=== PATIENT | female | born 1935 | race Caucasian/White ===

== ENCOUNTER 2023-06-19 10:26 | Outpatient (AMB) | payer MEDICARE, SELFPAY ==
[2023-06-19 11:04] VITALS: BP 130/80; PULSE 69; O2SAT 100; BMI 24.4
--- NOTE | 2023-06-19 11:04 | HO.NEPHOV_ITS ---
HPI HPI Comments History of Present Illness Details I had the privilege of seeing Rafaela in follow-up of her chronic kidney disease. She has been going through a lot of personal life stressors due to her 's ill health. She was put on NADIA-inhibitor in the past which has led to hyperkalemia and was discontinued. Her blood pressure is typically well controlled at home. She regularly takes potassium lowering medications. She does not have any chest pain, shortness of breath, proximal nocturnal dyspnea, orthopnea, pedal edema, nephrolithiasis, hematuria or orthostatic symptoms. She does not take nonsteroidal anti-inflammatories and maintain good hydration. [facility] Medical History (Updated 06/24/23 @ 13:29 by Michele Seo MD) Secondary hyperparathyroidism Hyperkalemia CKD (chronic kidney disease) Hypertension Surgical History (Updated 06/19/23 @ 11:08 by Anne Womack MA) History of hip surgery Hx of hernia repair History of hysterectomy Family History (Updated 06/19/23 @ 11:09 by Anne Womack MA) Father Heart disease Mother Hypertension Social History (Updated 06/19/23 @ 11:08 by Anne Womack MA) Alcohol intake: current Patient Tobacco Use Status: Never used Tobacco Vital Signs 06/19/23 11:04 Height 5 ft 2 in Weight 133 lb 4 oz BMI 24.4 BP 130/80 Blood Pressure Location Rt brachial Position Sitting Pulse 69 Pulse Source Pulse Oximeter Pulse Oximetry (%) 100 Oxygen Delivery Method Room Air Physical Exam Vital Signs: Last Vital Signs Pulse 69 06/19/23 11:04 BP 130/80 06/19/23 11:04 Pulse Ox 100 06/19/23 11:04 Oxygen Delivery Method Room Air 06/19/23 11:04 BMI result Body Mass Index 24.4 Const General: comfortable and no acute distress Orientation/consciousness: patient oriented x3 HEENT Head: Yes normocephalic Mouth: Normal oral and palatal mucosa present Eyes EOM: EOMs intact bilaterally Neck Neck: Yes supple Resp Auscultation: clear to auscultation bilaterally Cardio Jugular venous distension: no JVD Rate: regular rate GI Palpation (GI): Soft to palpation Auscultation: normal bowel sounds General: Yes no CVA tenderness Back/Spine/Pelvis Back: no CVA tenderness Skin General skin exam: no rashes or lesions noted Neuro General: patient oriented x3 and moves all extremities Extrem General: Yes no pedal edema Assessment & Plan Assessment & Plan (1) Chronic kidney disease, stage 4 (severe): Code(s): N18.4 - Chronic kidney disease, stage 4 (severe) (2) Hyperkalemia: Code(s): E87.5 - Hyperkalemia (3) Secondary hyperparathyroidism (of renal origin): Code(s): N25.81 - Secondary hyperparathyroidism of renal origin Plan Rafaela has stage 4 chronic kidney disease. Her renal functions had been stable. She has no history of blood or protein in the urine. Her blood pressure is currently well controlled. She had been on NADIA inhibitor in the past which was discontinued due to hyperkalemia. CT abdomen in the past had shown bilateral atrophic kidneys. The nature of her renal insult is unknown. She had undergone serum immunofixation and urine studies along with the Doppler of renal arteries, which were unremarkable. She is on potassium lowering medications. She had issues with white vitamin-D before. She avoids nonsteroidal anti-inflammatories and maintain good hydration. I did not make any medication changes today. Follow-up blood work ordered. Answered all questions. Follow-up appointment given. Orders: Orders Creatinine 06/19/23 N18.4 - Chronic kidney disease, stage 4 (severe) Blood Urea Nitrogen 06/19/23 N18.4 - Chronic kidney disease, stage 4 (severe) Parathyroid Hormone Intact 06/19/23 N18.4 - Chronic kidney disease, stage 4 (severe) Complete Blood Count Auto Diff 06/19/23 N18.4 - Chronic kidney disease, stage 4 (severe) Electrolytes 06/19/23 N18.4 - Chronic kidney disease, stage 4 (severe) Medications: New sodium polystyrene sulf-sorbtl 15-20 gram/60 mL (SPS (with sorbitol)) 120 mL PO QWEEK 473 mL 5RF Coding Level of Care Code Est Pt Level 4 (39247) Diagnoses Chronic kidney disease, stage 4 (severe) N18.4 Hyperkalemia E87.5 Secondary hyperparathyroidism (of renal origin) N25.81 Results Reviewed Nephrology Results: No Data to Display
== END 2023-06-19 11:40 | disposition home or self-care (01) ==
LOC: HO.HKAS 10:26
PROVIDERS: PCP Internal Medicine; Visit Provider Internal Medicine Nephrology
DX: N18.4 Chronic kidney disease, stage 4 (severe) (principal); E87.5 Hyperkalemia; N25.81 Secondary hyperparathyroidism of renal origin
CPT/HCPCS: 99214

== ENCOUNTER → 2023-06-19 10:26 | Outpatient (BNVA) | payer MEDICARE, SELFPAY | PROVIDERS: PCP Internal Medicine; Visit Provider Internal Medicine Nephrology | DX: N18.4 Chronic kidney disease, stage 4 (severe) (principal) | CPT/HCPCS: 99212 ==

== ENCOUNTER 2023-10-07 10:13 | Outpatient (AMB) | payer MEDICARE, SELFPAY ==
[2023-10-07 10:31] VITALS: BP 126/82; PULSE 72; O2SAT 99; BMI 23.6
--- NOTE | 2023-10-07 10:31 | HO.NEPHOV ---
Vital Signs 10/07/23 10:31 Height 5 ft 2 in Weight 129 lb BMI 23.6 BP 126/82 Blood Pressure Location Lt brachial Position Sitting Pulse 72 Pulse Source Pulse Oximeter Pulse Oximetry (%) 99 Oxygen Delivery Method Room Air Intake Visit Reasons: 4 Month F/U/ Conf Repertoire Manager Required: No Accompanied by: Self / Same As Patient Allergies lisinopril Allergy (Verified 10/07/23 10:33) Unknown nitrofurantoin Allergy (Verified 10/07/23 10:33) Gastrointestinal Upset Penicillins Allergy (Verified 10/07/23 10:33) Unknown prednisone Allergy (Verified 10/07/23 10:33) Unknown Progestins Allergy (Verified 10/07/23 10:33) Unknown HPI Comments Details: I had the privilege of seeing Rafaela in follow-up of her chronic kidney disease. She has been going through a lot of personal life stressors due to her 's ill health. She was put on NADIA-inhibitor in the past which has led to hyperkalemia and was discontinued. She has not been taking Kionex for a few weeks and her latest K was 6.0. Her blood pressure is typically well controlled at home. She does not have any chest pain, shortness of breath, proximal nocturnal dyspnea, orthopnea, pedal edema, nephrolithiasis, hematuria or orthostatic symptoms. She does not take nonsteroidal anti-inflammatories and maintain good hydration. [facility] Medical History (Updated 06/24/23 @ 13:29 by Michele Seo MD) Secondary hyperparathyroidism Hyperkalemia CKD (chronic kidney disease) Hypertension Surgical History History of hip surgery Hx of hernia repair History of hysterectomy Family History Father Heart disease Mother Hypertension Social History Alcohol intake: current Patient Tobacco Use Status: Never used Tobacco Physical Exam Vital Signs: Last Vital Signs Pulse 72 10/07/23 10:31 BP 126/82 10/07/23 10:31 Pulse Ox 99 10/07/23 10:31 Oxygen Delivery Method Room Air 10/07/23 10:31 BMI result Body Mass Index 23.6 Const General: comfortable and no acute distress Orientation/consciousness: patient oriented x3 HEENT Head: Yes normocephalic Mouth: Normal oral and palatal mucosa present Eyes EOM: EOMs intact bilaterally Neck Neck: Yes supple Resp Auscultation: clear to auscultation bilaterally Cardio Jugular venous distension: no JVD Rate: regular rate GI Palpation (GI): Soft to palpation Auscultation: normal bowel sounds General: Yes no CVA tenderness Back/Spine/Pelvis Back: no CVA tenderness Skin General skin exam: no rashes or lesions noted Neuro General: patient oriented x3 and moves all extremities Extrem General: Yes no pedal edema Results Reviewed Nephrology Results: No Data to Display Assessment & Plan Assessment & Plan (1) Chronic kidney disease, stage 4 (severe): Code(s): N18.4 - Chronic kidney disease, stage 4 (severe) Category: Medical (2) Secondary hyperparathyroidism (of renal origin): Code(s): N25.81 - Secondary hyperparathyroidism of renal origin Category: Medical Plan Rafaela has stage 4 chronic kidney disease. Her renal functions had been stable. She has no history of blood or protein in the urine. Her blood pressure is currently well controlled. She had been on NADIA inhibitor in the past which was discontinued due to hyperkalemia. CT abdomen in the past had shown bilateral atrophic kidneys. The nature of her renal insult is unknown. She had undergone serum immunofixation and urine studies along with the Doppler of renal arteries, which were unremarkable. She has been on potassium lowering medications. I encouraged the compliance. She had issues with white vitamin-D before. She avoids nonsteroidal anti-inflammatories and maintain good hydration. I did not make any other medication changes today. Follow-up blood work ordered. Answered all questions. Follow-up appointment given. Orders: Orders Electrolytes Today N18.4 - Chronic kidney disease, stage 4 (severe), N25.81 - Secondary hyperparathyroidism of renal origin Blood Urea Nitrogen Today N18.4 - Chronic kidney disease, stage 4 (severe), N25.81 - Secondary hyperparathyroidism of renal origin Creatinine Today N18.4 - Chronic kidney disease, stage 4 (severe), N25.81 - Secondary hyperparathyroidism of renal origin Medications: New sodium polystyrene sulfonate 30 grams orally twice a week; 453.6 grams 3RF Coding Level of Care Code Est Pt Level 4 (05787) Diagnoses Chronic kidney disease, stage 4 (severe) N18.4 Secondary hyperparathyroidism (of renal origin) N25.81
== END 2023-10-07 11:03 | disposition home or self-care (01) ==
PROVIDERS: PCP Internal Medicine; Visit Provider Internal Medicine Nephrology
DX: N18.4 Chronic kidney disease, stage 4 (severe) (principal); N25.81 Secondary hyperparathyroidism of renal origin
CPT/HCPCS: 99214

== ENCOUNTER → 2023-10-07 10:13 | Outpatient (BNVA) | payer MEDICARE, SELFPAY | PROVIDERS: PCP Internal Medicine; Visit Provider Internal Medicine Nephrology | DX: N18.4 Chronic kidney disease, stage 4 (severe) (principal); N25.81 Secondary hyperparathyroidism of renal origin | CPT/HCPCS: 99212 ==

== ENCOUNTER 2023-12-04 10:21 | Outpatient (AMB) | payer MEDICARE, SELFPAY ==
[2023-12-04 10:28] VITALS: BP 144/70; PULSE 68; O2SAT 100; BMI 23.4
--- NOTE | 2023-12-04 10:28 | HO.NEPHOV ---
Vital Signs 12/04/23 10:28 Height 5 ft 2 in Weight 128 lb BMI 23.4 BP 144/70 H Blood Pressure Location Rt brachial Position Sitting Pulse 68 Pulse Source Pulse Oximeter Pulse Oximetry (%) 100 Oxygen Delivery Method Room Air Intake Visit Reasons: Hospital F/U [facility] Low Sodium Nurse Specialist Required: No Accompanied by: Self / Same As Patient Allergies lisinopril Allergy (Verified 12/04/23 10:30) Unknown nitrofurantoin Allergy (Verified 12/04/23 10:30) Gastrointestinal Upset Penicillins Allergy (Verified 12/04/23 10:30) Unknown prednisone Allergy (Verified 12/04/23 10:30) Unknown Progestins Allergy (Verified 12/04/23 10:30) Unknown HPI Comments Details: I had the privilege of seeing Rafaela in follow-up of her chronic kidney disease and recent hospitalization for hyponatremia. She had a diagnosis of interstitial cystitis in the past. She recently had UTI and was given Bactrim. She developed nausea and was drinking excess free water. She has been going through a lot of personal life stressors due to her 's ill health. She was put on NADIA-inhibitor in the past which has led to hyperkalemia and was discontinued. Her blood pressure is typically well controlled at home. She does not have any chest pain, shortness of breath, proximal nocturnal dyspnea, orthopnea, pedal edema, nephrolithiasis, hematuria or orthostatic symptoms. She does not take nonsteroidal anti-inflammatories and maintain good hydration. [facility] Medical History (Updated 12/04/23 @ 10:47 by Michele Seo MD) Secondary hyperparathyroidism Hyperkalemia CKD (chronic kidney disease) Hypertension Surgical History History of hip surgery Hx of hernia repair History of hysterectomy Family History Father Heart disease Mother Hypertension Social History Alcohol intake: current Patient Tobacco Use Status: Never used Tobacco Review of Systems Const All systems reviewed & are unremarkable except as noted in HPI and below Physical Exam Vital Signs: Last Vital Signs Pulse 68 12/04/23 10:28 BP 144/70 H 12/04/23 10:28 Pulse Ox 100 12/04/23 10:28 Oxygen Delivery Method Room Air 12/04/23 10:28 BMI result Body Mass Index 23.4 Const General: comfortable and no acute distress Orientation/consciousness: patient oriented x3 HEENT Head: Yes normocephalic Mouth: Normal oral and palatal mucosa present Eyes EOM: EOMs intact bilaterally Neck Neck: Yes supple Resp Auscultation: clear to auscultation bilaterally Cardio Jugular venous distension: no JVD Rate: regular rate GI Palpation (GI): Soft to palpation Auscultation: normal bowel sounds General: Yes no CVA tenderness Back/Spine/Pelvis Back: no CVA tenderness Skin General skin exam: no rashes or lesions noted Neuro General: patient oriented x3 and moves all extremities Extrem General: Yes no pedal edema Results Reviewed Nephrology Results: No Data to Display Assessment & Plan Assessment & Plan (1) Hypertension: Code(s): I10 - Essential (primary) hypertension Category: Medical Qualifiers: Hypertension type: primary hypertension Qualified Code(s): I10 - Essential (primary) hypertension (2) Chronic kidney disease, stage 4 (severe): Code(s): N18.4 - Chronic kidney disease, stage 4 (severe) Category: Medical (3) Hyperkalemia: Code(s): E87.5 - Hyperkalemia Category: Medical (4) Secondary hyperparathyroidism (of renal origin): Code(s): N25.81 - Secondary hyperparathyroidism of renal origin Category: Medical (5) Hyponatremia: Code(s): E87.1 - Hypo-osmolality and hyponatremia Category: Medical Plan Rafaela has stage 4 chronic kidney disease. Her renal functions had been stable. Her sodium is better. She should fluid restrict herself to 50 oz/24 hours. Her K is normal. She has no history of blood or protein in the urine. Her blood pressure is currently well controlled. She had been on NADIA inhibitor in the past which was discontinued due to hyperkalemia. CT abdomen in the past had shown bilateral atrophic kidneys. The nature of her renal insult is unknown. She had undergone serum immunofixation and urine studies along with the Doppler of renal arteries, which were unremarkable. She has been on potassium lowering medications. I encouraged the compliance. She had issues with white vitamin-D before. She avoids nonsteroidal anti-inflammatories and maintain good hydration. I did not make any other medication changes today. Follow-up blood work ordered. Answered all questions. Follow-up appointment given Orders: Orders Electrolytes Today E87.1 - Hypo-osmolality and hyponatremia, E87.5 - Hyperkalemia, I10 - Essential (primary) hypertension, N18.4 - Chronic kidney disease, stage 4 (severe), N25.81 - Secondary hyperparathyroidism of renal origin Creatinine Today E87.1 - Hypo-osmolality and hyponatremia, E87.5 - Hyperkalemia, I10 - Essential (primary) hypertension, N18.4 - Chronic kidney disease, stage 4 (severe), N25.81 - Secondary hyperparathyroidism of renal origin Blood Urea Nitrogen Today E87.1 - Hypo-osmolality and hyponatremia, E87.5 - Hyperkalemia, I10 - Essential (primary) hypertension, N18.4 - Chronic kidney disease, stage 4 (severe), N25.81 - Secondary hyperparathyroidism of renal origin Cortisol Random Today E87.1 - Hypo-osmolality and hyponatremia Coding Level of Care Code Est Pt Level 4 (28873) Diagnoses Primary hypertension I10 Hypertension type: primary hypertension Chronic kidney disease, stage 4 (severe) N18.4 Hyperkalemia E87.5 Secondary hyperparathyroidism (of renal origin) N25.81 Hyponatremia E87.1
== END 2023-12-04 10:57 | disposition home or self-care (01) ==
PROVIDERS: PCP Internal Medicine; Visit Provider Internal Medicine Nephrology
DX: I12.9 Hypertensive chronic kidney disease with stage 1 through stage 4 chronic kidney disease, or unspecified chronic kidney disease (principal); N18.4 Chronic kidney disease, stage 4 (severe); E87.5 Hyperkalemia; N25.81 Secondary hyperparathyroidism of renal origin; E87.1 Hypo-osmolality and hyponatremia
CPT/HCPCS: 99214

== ENCOUNTER → 2023-12-04 10:21 | Outpatient (BNVA) | payer MEDICARE, SELFPAY | PROVIDERS: PCP Internal Medicine; Visit Provider Internal Medicine Nephrology | DX: I12.9 Hypertensive chronic kidney disease with stage 1 through stage 4 chronic kidney disease, or unspecified chronic kidney disease (principal); N18.4 Chronic kidney disease, stage 4 (severe); N25.81 Secondary hyperparathyroidism of renal origin; E87.5 Hyperkalemia; E87.1 Hypo-osmolality and hyponatremia | CPT/HCPCS: 99212 ==

== ENCOUNTER 2024-02-03 10:07 | Outpatient (AMB) | payer MEDICARE, SELFPAY ==
--- NOTE | 2024-02-03 10:12 | HO.NEPHOV ---
Vital Signs 02/03/24 10:14 Height 5 ft 2 in Weight 127 lb BMI 23.2 BP 164/84 H Blood Pressure Location Rt brachial Position Sitting Pulse 58 Pulse Source Pulse Oximeter Pulse Oximetry (%) 100 Oxygen Delivery Method Room Air Intake Visit Reasons: 4 mon follow up Communications Systems Engineer Required: No Accompanied by: Self / Same As Patient Allergies lisinopril Allergy (Verified 02/03/24 10:13) Unknown nitrofurantoin Allergy (Verified 02/03/24 10:13) Gastrointestinal Upset Penicillins Allergy (Verified 02/03/24 10:13) Unknown prednisone Allergy (Verified 02/03/24 10:13) Unknown Progestins Allergy (Verified 02/03/24 10:13) Unknown HPI Comments Details: Rafaela was seen in follow-up of her chronic kidney disease . She recently had a hospitalization for hyponatremia. She had a diagnosis of interstitial cystitis in the past. She recently had UTI and was given Bactrim. She developed nausea and was drinking excess free water. She has been going through a lot of personal life stressors due to her 's ill health. She was put on NADIA-inhibitor in the past which has led to hyperkalemia and was discontinued. Her blood pressure is typically well controlled at home. She does not have any chest pain, shortness of breath, proximal nocturnal dyspnea, orthopnea, pedal edema, nephrolithiasis, hematuria or orthostatic symptoms. She does not take nonsteroidal anti-inflammatories and maintain good hydration. [facility] Medical History (Updated 12/04/23 @ 10:47 by Michele Seo MD) Secondary hyperparathyroidism Hyperkalemia CKD (chronic kidney disease) Hypertension Surgical History History of hip surgery Hx of hernia repair History of hysterectomy Family History Father Heart disease Mother Hypertension Social History Alcohol intake: current Patient Tobacco Use Status: Never used Tobacco Review of Systems Const All systems reviewed & are unremarkable except as noted in HPI and below Physical Exam Const General: comfortable and no acute distress Orientation/consciousness: patient oriented x3 HEENT Head: Yes normocephalic Mouth: Normal oral and palatal mucosa present Eyes EOM: EOMs intact bilaterally Neck Neck: Yes supple Resp Auscultation: clear to auscultation bilaterally Cardio Jugular venous distension: no JVD Rate: regular rate GI Palpation (GI): Soft to palpation Auscultation: normal bowel sounds General: Yes no CVA tenderness Back/Spine/Pelvis Back: no CVA tenderness Skin General skin exam: no rashes or lesions noted Neuro General: patient oriented x3 and moves all extremities Extrem General: Yes no pedal edema Results Reviewed Nephrology Results: No Data to Display Assessment & Plan Assessment & Plan (1) Chronic kidney disease, stage 4 (severe): Code(s): N18.4 - Chronic kidney disease, stage 4 (severe) Category: Medical (2) Secondary hyperparathyroidism (of renal origin): Code(s): N25.81 - Secondary hyperparathyroidism of renal origin Category: Medical (3) Hyperkalemia: Code(s): E87.5 - Hyperkalemia Category: Medical (4) Hypertension: Code(s): I10 - Essential (primary) hypertension Category: Medical Qualifiers: Hypertension type: primary hypertension Qualified Code(s): I10 - Essential (primary) hypertension Plan Rafaela has stage 4 chronic kidney disease. Her renal functions had been stable. Her sodium has normalized. She should fluid restrict herself to 50 oz/24 hours. Her K is normal. She has no history of blood or protein in the urine. Her blood pressure is currently well controlled. She had been on NADIA inhibitor in the past which was discontinued due to hyperkalemia. CT abdomen in the past had shown bilateral atrophic kidneys. The nature of her renal insult is unknown. She had undergone serum immunofixation and urine studies along with the Doppler of renal arteries, which were unremarkable. She has been on potassium lowering medications. I encouraged the compliance. She had issues with vitamin-D before. She avoids nonsteroidal anti-inflammatories and maintain good hydration. I started her on NaHCO3 650 mg daily but did not make any other medication changes today. Follow-up blood work ordered. Answered all questions. Follow-up appointment given Orders: Orders Creatinine 3 Months N18.4 - Chronic kidney disease, stage 4 (severe) Blood Urea Nitrogen 3 Months N18.4 - Chronic kidney disease, stage 4 (severe) Electrolytes 3 Months N18.4 - Chronic kidney disease, stage 4 (severe) Medications: New sodium bicarbonate 650 mg PO DAILY 90 tabs 4RF stomach upset Coding Level of Care Code Est Pt Level 4 (89040) Diagnoses Chronic kidney disease, stage 4 (severe) N18.4 Secondary hyperparathyroidism (of renal origin) N25.81 Hyperkalemia E87.5 Primary hypertension I10 Hypertension type: primary hypertension
[2024-02-03 10:14] VITALS: BP 164/84; PULSE 58; O2SAT 100; BMI 23.2
== END 2024-02-03 10:32 | disposition home or self-care (01) ==
PROVIDERS: PCP Internal Medicine; Visit Provider Internal Medicine Nephrology
DX: I12.9 Hypertensive chronic kidney disease with stage 1 through stage 4 chronic kidney disease, or unspecified chronic kidney disease (principal); N18.4 Chronic kidney disease, stage 4 (severe); N25.81 Secondary hyperparathyroidism of renal origin; E87.5 Hyperkalemia
CPT/HCPCS: 99214

== ENCOUNTER → 2024-02-03 10:07 | Outpatient (BNVA) | payer MEDICARE, SELFPAY | PROVIDERS: PCP Internal Medicine; Visit Provider Internal Medicine Nephrology | DX: I12.9 Hypertensive chronic kidney disease with stage 1 through stage 4 chronic kidney disease, or unspecified chronic kidney disease (principal); N18.4 Chronic kidney disease, stage 4 (severe); N25.81 Secondary hyperparathyroidism of renal origin; E87.5 Hyperkalemia | CPT/HCPCS: 99212 ==

== ENCOUNTER 2024-06-03 10:17 | Outpatient (AMB) | payer MEDICARE, SELFPAY ==
--- NOTE | 2024-06-03 10:24 | HO.NEPHOV_ITS ---
Vital Signs 06/03/24 10:25 Height 5 ft 2 in Weight 126 lb 4 oz BMI 23.1 BP 130/70 Blood Pressure Location Rt brachial Position Sitting Pulse 77 Pulse Source Pulse Oximeter Pulse Oximetry (%) 97 Oxygen Delivery Method Room Air Intake Visit Reasons: 4 mon follow up-Conf Manager Architectural Required: No Accompanied by: Self / Same As Patient Allergies lisinopril Allergy (Verified 06/03/24 10:25) Unknown nitrofurantoin Allergy (Verified 06/03/24 10:25) Gastrointestinal Upset Penicillins Allergy (Verified 06/03/24 10:25) Unknown prednisone Allergy (Verified 06/03/24 10:25) Unknown Progestins Allergy (Verified 06/03/24 10:25) Unknown HPI Comments Details: Rafaela was seen in follow-up of her chronic kidney disease . She had a diagnosis of interstitial cystitis in the past. She has been going through a lot of personal life stressors due to her 's ill health. She was put on NADIA- inhibitor in the past which has led to hyperkalemia and was discontinued. Her blood pressure is typically well controlled at home. She does not have any chest pain, shortness of breath, proximal nocturnal dyspnea, orthopnea, pedal edema, nephrolithiasis, hematuria or orthostatic symptoms. She does not take nonsteroidal anti-inflammatories and maintain good hydration. [facility] Medical History (Updated 06/03/24 @ 10:45 by Michele Seo MD) Secondary hyperparathyroidism Hyperkalemia CKD (chronic kidney disease) Hypertension Surgical History History of hip surgery Hx of hernia repair History of hysterectomy Family History Father Heart disease Mother Hypertension Social History Alcohol intake: current Patient Tobacco Use Status: Never used Tobacco Review of Systems Const All systems reviewed & are unremarkable except as noted in HPI and below Physical Exam Vital Signs: Last Vital Signs Pulse 77 06/03/24 10:25 BP 172/80 H 06/03/24 10:25 Pulse Ox 97 06/03/24 10:25 Oxygen Delivery Method Room Air 06/03/24 10:25 BMI result Body Mass Index 23.1 Const General: comfortable and no acute distress Orientation/consciousness: patient oriented x3 HEENT Head: Yes normocephalic Mouth: Normal oral and palatal mucosa present Eyes EOM: EOMs intact bilaterally Neck Neck: Yes supple Resp Auscultation: clear to auscultation bilaterally Cardio Jugular venous distension: no JVD Rate: regular rate GI Palpation (GI): Soft to palpation Auscultation: normal bowel sounds Skin General skin exam: no rashes or lesions noted Neuro General: patient oriented x3 and moves all extremities Extrem General: Yes no pedal edema Results Reviewed Nephrology Results: No Data to Display Assessment & Plan Assessment & Plan (1) Secondary hyperparathyroidism (of renal origin): Code(s): N25.81 - Secondary hyperparathyroidism of renal origin Category: Medical (2) Hyperkalemia: Code(s): E87.5 - Hyperkalemia Category: Medical (3) Chronic kidney disease, stage 4 (severe): Code(s): N18.4 - Chronic kidney disease, stage 4 (severe) Category: Medical (4) Hypertension: Code(s): I10 - Essential (primary) hypertension Category: Medical Qualifiers: Hypertension type: primary hypertension Qualified Code(s): I10 - Essential (primary) hypertension (5) Metabolic acidosis: Code(s): E87.20 - Acidosis, unspecified Category: Medical Plan Rafaela has stage 4 chronic kidney disease. Her renal functions had been stable. Her sodium has normalized. She should fluid restrict herself to 50 oz/24 hours. Her K is normal. She has no history of blood or protein in the urine. Her blood pressure is currently well controlled. She had been on NADIA inhibitor in the past which was discontinued due to hyperkalemia. CT abdomen in the past had shown bilateral atrophic kidneys. The nature of her renal insult is unknown. She had undergone serum immunofixation and urine studies along with the Doppler of renal arteries, which were unremarkable. She has been on potassium lowering medications. I encouraged the compliance. She had issues with vitamin-D before. She avoids nonsteroidal anti-inflammatories and maintain good hydration. She should continue NaHCO3 650 mg daily but did not make any other medication changes today. Follow-up blood work ordered. Answered all questions. Follow- up appointment given Orders: Orders Creatinine 4 Months E87.20 - Acidosis, unspecified, E87.5 - Hyperkalemia, I10 - Essential (primary) hypertension, N18.4 - Chronic kidney disease, stage 4 (severe), N25.81 - Secondary hyperparathyroidism of renal origin Blood Urea Nitrogen 4 Months E87.20 - Acidosis, unspecified, E87.5 - Hyperkalemia, I10 - Essential (primary) hypertension, N18.4 - Chronic kidney disease, stage 4 (severe), N25.81 - Secondary hyperparathyroidism of renal origin Electrolytes 4 Months E87.20 - Acidosis, unspecified, E87.5 - Hyperkalemia, I10 - Essential (primary) hypertension, N18.4 - Chronic kidney disease, stage 4 (severe), N25.81 - Secondary hyperparathyroidism of renal origin Calcium 4 Months E87.20 - Acidosis, unspecified, E87.5 - Hyperkalemia, I10 - Essential (primary) hypertension, N18.4 - Chronic kidney disease, stage 4 (severe), N25.81 - Secondary hyperparathyroidism of renal origin Parathyroid Hormone Intact 4 Months E87.20 - Acidosis, unspecified, E87.5 - Hyperkalemia, I10 - Essential (primary) hypertension, N18.4 - Chronic kidney disease, stage 4 (severe), N25.81 - Secondary hyperparathyroidism of renal origin Coding Level of Care Code Est Pt Level 4 (03315) Diagnoses Secondary hyperparathyroidism (of renal origin) N25.81 Hyperkalemia E87.5 Chronic kidney disease, stage 4 (severe) N18.4 Primary hypertension I10 Hypertension type: primary hypertension Metabolic acidosis E87.20
[2024-06-03 10:25] VITALS: BP 130/70; PULSE 77; O2SAT 97; BMI 23.1
--- OUTSIDE RECORDS SUMMARY | 2024-06-03 12:44 | XMS_ITS | Encounter Summary ---
Author Organization [facility] Address [address] [place] [phone] Phone Care Team Providers Care Prospecting Driller Name Role Phone Jannette Nair MD Primary Care Provider Encounter Details Date Type Department Care Team (Late st Contact Info) Description 12/01/2023 Office Communication [facility]. [address] [phone] Felipe Smith MD [address] [phone] Social History Tobacco Use Types Packs/Day Years Used Date Smoking Tobacco: Never Smokeless Tobacco: Never Alcohol Use Standard Drinks/Week Comments No 0 (1 standard drink = 0.6 oz pur e alcohol) Comments Unknown Sex and Gender Information Value Date Recorded Sex Assigned at Not on file Legal Sex Female 4:42 PM EST Gender Identity Not on file Sexual Orientation Not on file documented as of this encounter Miscellaneous Notes * Telephone Encounter - Felipe Smith MD - 12/01/2023 11:02 AM EDT Recent [facility] --needs f/u with Chinyere Cohn in 3-5 weeks or one of the docs in [facility] office documented in this encounter Plan of Treatment Not on file documented as of this encounter Visit Diagnoses Not on filedocumented in this encounter Care Teams Prospecting Driller Relationship Specialty Start Date End Date Jannette Nair MD [address] PCP - General 04/03/20 documented as of this encounter
--- OUTSIDE RECORDS SUMMARY | 2024-06-03 12:44 | XMS_ITS | Clinical Summary ---
Author Organization [facility] Address [address] [facility] [address] [place] [address] Phone Care Team Providers Care Steel Manager Name Role Phone Jannette Nair MD Primary Care Provider Allergies Active Allergy Reactions Criticality Noted Date Comments Lisinopril Other (see comments) 11/10/2020 Nitrofurantoin GI intolerance 07/30/2021 Penicillins Other (see comments) 11/13/2020 Prednisone Other (see comments) 11/13/2020 Progestins Other (see comments) 11/13/2020 Medications EQ Aspirin Adult Low Dose 81 MG EC tablet Take 81 mg by mouth 1 (one) time each day 07/13/2021 Active Synthroid 75 MCG tablet Take 75 mcg by mouth 1 (one) time each day 10/01/2021 Active acetaminophen (TYLENOL) 325 MG tablet Take by mouth if needed for mild pain Active sodium polystyrene (SPS) 15 GM/60ML suspensionIndica tions:Chronic kidney disease stage 4 (HCC) TAKE 120 ML BY MOUTH ONCE A WEEK 473 mL 12/23/2022 Active Active Problems Problem Noted Date Diagnosed Date Fracture of bone of hip region 11/29/2021 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 Vitamin D deficiency 04/16/2021 Hypertension 01/09/2021 Chronic kidney disease stage 4 11/13/2020 Hyperkalemia 11/13/2020 Resolved Problems Problem Noted Date Diagnosed Date Resolved Date Anxiety 07/30/2021 08/21/2021 Dyslipidemia 07/30/2021 08/21/2021 Dystrophy of vulva 07/30/2021 History of malignant neoplasm of breast 07/30/2021 08/21/2021 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/21/2021 Chronic diastolic heart failure 04/16/2021 08/21/2021 Hypothyroidism 04/16/2021 08/21/2021 Osteopenia 04/16/2021 08/21/2021 Pain in upper limb 04/16/2021 Immunizations Name Administration Dates Next Due Influenza Split High Dose Preservative Free IM 0 03/30/2019 Influenza Vaccine, Quadrivalent, Adjuvanted 11/24 Influenza, Intrademal, Quadrivalent, Preservativ e Free 02/24/2017 Moderna SARS-COV-2 06/15/2020,05/18/2020 Pfizer SARS-COV-2 03/08/2021 Pneumococcal Conjugate 13-Valent 12/06/2014,03/2014 Pneumococcal Polysaccharide 02/13/2016 Td, Unspecified 12/22/2012 Family History Medical History Relation Comments Heart disease Father Hypertension Mother Relation Status Comments Father Mother Social History Tobacco Use Types Packs/Day Years Used Date Smoking Tobacco: Never Smokeless Tobacco: Never Tobacco Cessation:Counseling Given: Not Answered Alcohol Use Standard Drinks/Week Comments No 0 (1 standard drink = 0.6 oz pur e alcohol) Comments Unknown Sex and Gender Information Value Date Recorded Sex Assigned at Not on file Legal Sex Female 4:42 PM EST Gender Identity Not on file Sexual Orientation Not on file Last Filed Vital Signs Vital Sign Reading Time Taken Comments Blood Pressure 130/76 12/17/2022 1:39 PM EDT Pulse 80 12/17/2022 1:39 PM EDT Temperature - - Respiratory Rate - - Oxygen Saturation 99% 12/17/2022 1:39 PM EDT Inhaled Oxygen Concentration - - Weight 62.8 kg (138 lb 6.4 oz) 12/17/2022 1:39 P M EDT Height 160 cm (5' 3 ) 12/17/2022 1:39 PM EDT Body Mass Index 24.52 12/17/2022 1:39 PM EDT Plan of Treatment Health Maintenance Due Date Last Done Comments Influenza Vaccine (#1) 2023 0, 03/30/2019 Pneumococcal Vaccine: 65+ Years Completed 02/13/2016, 12/06/2014, 11/22/2014 Hepatitis B Vaccine Aged Out No longe r eligible based on patient's age to complete this topic Insurance [address] [place] [address] MEDICARE [facility] MEDICARE Care Teams Steel Manager Relationship Specialty Start Date End Date Jannette Nair MD [address] PCP - General 04/03/20
--- OUTSIDE RECORDS SUMMARY | 2024-06-03 12:44 | XMS_ITS | Encounter Summary ---
Author Organization [facility] Address [address] [place] [address] Phone Care Team Providers Care Medical Imaging Director Name Role Phone Jannette Nair MD Primary Care Provider Encounter Details Date Type Department Care Team (Late st Contact Info) Description 08/13/2021 Telephone [facility] [address] [facility] [address] [place] [phone] Michele Seo MD Social History Tobacco Use Types Packs/Day Years [...] encounter Miscellaneous Notes * Telephone Encounter - Caterina Bhagat - 08/13/2021 11:24 AM EDT Pt called, she would like to get her labs done for her appt on 08/22/21 With [facility]. Pleas advise Thank you documented in this encounter Plan of Treatment Not on file documented as of this encounter Visit Diagnoses Not on filedocumented in this encounter Care Teams Medical Imaging Director Relationship Specialty Start Date End Date Jannette Nair MD [address] PCP - General 04/03/20 documented as of this encounter
== END 2024-06-03 10:52 | disposition home or self-care (01) ==
LOC: HO.HKAS 10:17
PROVIDERS: PCP Internal Medicine; Visit Provider Internal Medicine Nephrology
DX: N25.81 Secondary hyperparathyroidism of renal origin (principal); E87.5 Hyperkalemia; I12.9 Hypertensive chronic kidney disease with stage 1 through stage 4 chronic kidney disease, or unspecified chronic kidney disease; N18.4 Chronic kidney disease, stage 4 (severe); E87.20 Acidosis, unspecified
CPT/HCPCS: 99214

== ENCOUNTER → 2024-06-03 10:17 | Outpatient (BNVA) | payer MEDICARE, SELFPAY | PROVIDERS: PCP Internal Medicine; Visit Provider Internal Medicine Nephrology | DX: I12.9 Hypertensive chronic kidney disease with stage 1 through stage 4 chronic kidney disease, or unspecified chronic kidney disease (principal); N18.4 Chronic kidney disease, stage 4 (severe); N25.81 Secondary hyperparathyroidism of renal origin; E87.5 Hyperkalemia; E87.20 Acidosis, unspecified | CPT/HCPCS: 99212 ==

== ENCOUNTER 2024-11-09 10:11 | Outpatient (AMB) | payer MEDICARE, SELFPAY ==
[2024-11-09 10:14] VITALS: BP 180/88; PULSE 55; O2SAT 100; BMI 22.3
--- NOTE | 2024-11-09 10:14 | HO.NEPHOV_ITS ---
Vital Signs 11/09/24 10:14 Height 5 ft 2 in Weight 122 lb BMI 22.3 BP 180/88 H Blood Pressure Location Rt brachial Position Sitting Pulse 55 Pulse Source Pulse Oximeter Pulse Oximetry (%) 100 Oxygen Delivery Method Room Air Intake Visit Reasons: 4mon follow-up w/labs-Conf Table Cut Off Saw Operator Required: No Accompanied by: Self / Same As Patient Allergies lisinopril Allergy (Verified 11/09/24 10:14) Unknown nitrofurantoin Allergy (Verified 11/09/24 10:14) Gastrointestinal Upset Penicillins Allergy (Verified 11/09/24 10:14) Unknown prednisone Allergy (Verified 11/09/24 10:14) Unknown Progestins Allergy (Verified 11/09/24 10:14) Unknown HPI Comments Details: Rafaela was seen in follow-up of her chronic kidney disease . She had a diagnosis of interstitial cystitis in the past. She has been going through a lot of personal life stressors due to her 's ill health. She was put on NADIA- inhibitor in the past which has led to hyperkalemia and was discontinued. Her blood pressure is typically well controlled at home. She does not have any chest pain, shortness of breath, proximal nocturnal dyspnea, orthopnea, pedal edema, nephrolithiasis, hematuria or orthostatic symptoms. She does not take nonsteroidal anti-inflammatories and maintain good hydration. Her BP is close to goal at home [facility] Medical History (Updated 06/03/24 @ 10:45 by Michele Seo MD) Secondary hyperparathyroidism Hyperkalemia CKD (chronic kidney disease) Hypertension Surgical History History of hip surgery Hx of hernia repair History of hysterectomy Family History Father Heart disease Mother Hypertension Social History Alcohol intake: current Patient Tobacco Use Status: Never used Tobacco Review of Systems Const All systems reviewed & are unremarkable except as noted in HPI and below Physical Exam Const General: comfortable and no acute distress Orientation/consciousness: patient oriented x3 HEENT Head: Yes normocephalic Mouth: Normal oral and palatal mucosa present Eyes EOM: EOMs intact bilaterally Neck Neck: Yes supple Resp Auscultation: clear to auscultation bilaterally Cardio Jugular venous distension: no JVD Rate: regular rate GI Palpation (GI): Soft to palpation Auscultation: normal bowel sounds General: Yes no CVA tenderness Back/Spine/Pelvis Back: no CVA tenderness Skin General skin exam: no rashes or lesions noted Neuro General: patient oriented x3 and moves all extremities Extrem General: Yes no pedal edema Assessment & Plan Assessment & Plan (1) Hypertension: Code(s): I10 - Essential (primary) hypertension Category: Medical Qualifiers: Hypertension type: primary hypertension Qualified Code(s): I10 - Essential (primary) hypertension (2) Secondary hyperparathyroidism (of renal origin): Code(s): N25.81 - Secondary hyperparathyroidism of renal origin Category: Medical (3) Chronic kidney disease, stage 4 (severe): Code(s): N18.4 - Chronic kidney disease, stage 4 (severe) Category: Medical (4) Hyperkalemia: Code(s): E87.5 - Hyperkalemia Category: Medical (5) Metabolic acidosis: Code(s): E87.20 - Acidosis, unspecified Category: Medical Plan Rafaela has stage 4 chronic kidney disease. Her renal functions had been stable. She should fluid restrict herself to 50 oz/24 hours. Her K is high normal. She has no history of blood or protein in the urine. Her blood pressure is currently well controlled. She had been on NADIA inhibitor in the past which was discontinued due to hyperkalemia. CT abdomen in the past had shown bilateral atrophic kidneys. The nature of her renal insult is unknown. She had undergone serum immunofixation and urine studies along with the Doppler of renal arteries, which were unremarkable. She has been on potassium lowering medications. I encouraged the compliance. She had issues with vitamin-D before. She avoids nonsteroidal anti-inflammatories and maintain good hydration. She should continue NaHCO3 650 mg daily. I started her on calcitriol 0.25 mcg three times a week. Follow-up blood work ordered. Answered all questions. Orders: Orders Blood Urea Nitrogen 3 Months E87.20 - Acidosis, unspecified, E87.5 - Hyperkalemia, I10 - Essential (primary) hypertension, N18.4 - Chronic kidney disease, stage 4 (severe), N25.81 - Secondary hyperparathyroidism of renal origin Calcium 3 Months E87.20 - Acidosis, unspecified, E87.5 - Hyperkalemia, I10 - Essential (primary) hypertension, N18.4 - Chronic kidney disease, stage 4 (severe), N25.81 - Secondary hyperparathyroidism of renal origin Creatinine 3 Months E87.20 - Acidosis, unspecified, E87.5 - Hyperkalemia, I10 - Essential (primary) hypertension, N18.4 - Chronic kidney disease, stage 4 (severe), N25.81 - Secondary hyperparathyroidism of renal origin Electrolytes 3 Months E87.20 - Acidosis, unspecified, E87.5 - Hyperkalemia, I10 - Essential (primary) hypertension, N18.4 - Chronic kidney disease, stage 4 (severe), N25.81 - Secondary hyperparathyroidism of renal origin Parathyroid Hormone Intact 3 Months N25.81 - Secondary hyperparathyroidism of renal origin Medications: New calcitriol 0.25 mcg PO 3XW 14 caps 5RF Coding Level of Care Code Est Pt Level 4 (35130) Diagnoses Primary hypertension I10 Hypertension type: primary hypertension Secondary hyperparathyroidism (of renal origin) N25.81 Chronic kidney disease, stage 4 (severe) N18.4 Hyperkalemia E87.5 Metabolic acidosis E87.20
--- OUTSIDE RECORDS SUMMARY | 2024-11-09 11:27 | XMS_ITS | Clinical Summary ---
Author Organization [facility] Address [address] [facility] [address] [place] [address] Phone Care Team Providers Care Continuous Yarn Dyeing Machine Operator Name Role Phone Jannette Nair MD Primary [...] 08/21/2021 Pain in upper limb 04/16/2021 Immunizations Immunization Administration Dates Next Due Influenza Split High [...] Date Last Done Comments Influenza Vaccine (#1) 2024 0, 03/30/2019 Pneumococcal Vaccine: 50+ Years Completed 02/13/2016, 12/06/2014, 11/22/2014 Pneumococcal Vaccine: Peds (0 to 5 Years) and At-Risk Patients (6 to 49 Years) Discontinued 02/13/2016, 12/06/2014, 11/22/2014 Hepatitis B Vaccine Aged Out No longe r eligible based on patient's age to complete this topic [place] [address] [place] [address] Medicare [facility] Medicare Care Teams Continuous Yarn Dyeing Machine Operator Relationship Specialty Start Date End Date Jannette Nair MD [address] PCP - General 04/03/20
== END 2024-11-09 10:43 | disposition home or self-care (01) ==
LOC: HO.HKAS 10:12
PROVIDERS: PCP Internal Medicine; Visit Provider Internal Medicine Nephrology
DX: I12.9 Hypertensive chronic kidney disease with stage 1 through stage 4 chronic kidney disease, or unspecified chronic kidney disease (principal); N25.81 Secondary hyperparathyroidism of renal origin; N18.4 Chronic kidney disease, stage 4 (severe); E87.5 Hyperkalemia; E87.20 Acidosis, unspecified
CPT/HCPCS: 99214

== ENCOUNTER → 2024-11-09 10:11 | Outpatient (BNVA) | payer MEDICARE, SELFPAY | PROVIDERS: PCP Internal Medicine; Visit Provider Internal Medicine Nephrology | DX: I12.9 Hypertensive chronic kidney disease with stage 1 through stage 4 chronic kidney disease, or unspecified chronic kidney disease (principal); N18.4 Chronic kidney disease, stage 4 (severe); N25.81 Secondary hyperparathyroidism of renal origin; E87.5 Hyperkalemia; E87.20 Acidosis, unspecified | CPT/HCPCS: 99212 ==